=== PATIENT | female | born 1990 | race Two or more races ===

== ENCOUNTER 2019-02-02 18:43 | Emergency (ER) | payer OTHER ==
[~2019-02-02] VITALS: Ht 177.8 cm; Wt 86.2 kg
--- NOTE | 2019-02-02 18:53 | NUR ---
BIBRA FROM HOME SYNCOPAL EPISODE X2, +KO, C/O BACK PAIN WITH ABRASION, BG 105 ON THE FIELD, TO ER BED 7, HOKOED TO MONITOR, ANUJA RODRIGUEZ AT BEDSIDE
--- NOTE | 2019-02-02 19:37 | NUR ---
IV removed. Catheter intact and site benign. Pressure and 4x4 applied to site. No bleeding noted.Patient discharged to home in stable condition. Written and verbal after care instructions given. Patient verbalizes understanding of instruction.
[2019-02-02 19:40] VITALS: BP 132/72
== END 2019-02-02 19:40 | disposition home or self-care (01) ==
LOC: ER 18:45
DX: R55 Syncope and collapse (principal); F41.9 Anxiety disorder, unspecified; Z90.89 Acquired absence of other organs; Z60.2 Problems related to living alone